=== PATIENT | female | born 1955 | race Two or more races ===

== ENCOUNTER 2024-03-07 09:42 | Emergency (ER) | payer MEDICARE, BC ==
[~2024-03-07] VITALS: Ht 172.7 cm; Wt 108.9 kg
[2024-03-07] MEDS ORDERED: ACETAMINOPHEN ES 500 MG TABLET ONE (10:00)
[2024-03-07] MEDS: ACETAMINOPHEN ES 500 MG TABLET PO ONE (10:02)
[2024-03-07 12:38] VITALS: BP 110/64; TEMP 97.8; O2SAT 97
== END 2024-03-07 12:38 | disposition home or self-care (01) ==
LOC: ER 09:56
DX: M25.571 Pain in right ankle and joints of right foot (principal); I10 Essential (primary) hypertension
CPT/HCPCS: 73610-TC